=== PATIENT | female | born 1960 | race Caucasian/White ===

== ENCOUNTER 2019-08-06 09:35 | Emergency (ER) | payer BC ==
[~2019-08-06 09:35] MED LIST: HORMONE CREAM; IBUPROFEN600 MG PO; LEVOTHYROXINE PO; PERCOCET 325 MG1 TA2 PO; SKELAXIN800 MG PO; ZOFRAN ODT8 MG PO
[2019-08-06] MEDS ORDERED: LEVOTHYROXINE0.15 MG PO (10:11)
[2019-08-06 10:12] LABS: HEMATOCRIT 42.5 % (37.0-47.0); HEMOGLOBIN 13.8 g/dL (12.5-16.0); MEAN CELL VOLUME 93 fl (78-100); MEAN CORPUSCULAR HEMOGLOBIN 30 pg (27-31); MEAN CORPUSCULAR HGB CONC 33 g/dL (33-37); MEAN PLATELET VOLUME 11.1 fl (7.4-10.4); PLATELET COUNT 204 K/mm3 (130-400); RED BLOOD COUNT 4.56 M/mm3 (4.10-5.30); RED CELL DISTRIBUTION WIDTH 13.4 % (11.5-14.5); WHITE BLOOD COUNT 4.5 K/mm3 (4.8-10.8)
[2019-08-06 10:20] LABS: POTASSIUM 3.9 mmol/L (3.5-5.1); SODIUM 141 mmol/L (136-145)
[2019-08-06 10:21] LABS: CALCIUM 9.2 mg/dL (8.3-10.5)
[2019-08-06 10:22] LABS: GLUCOSE 97 mg/dL (65-105); TOTAL PROTEIN 6.7 g/dL (6.2-8.1); URINE COLOR YELLOW
[2019-08-06 10:23] LABS: CARBON DIOXIDE 25 mmol/L (23-31); PH-URINE 6.5 (5.0 - 8.0); URINE APPEARANCE CLEAR; URINE BILIRUBIN NEGATIVE (NEGATIVE); URINE BLOOD NEGATIVE (NEGATIVE); URINE GLUCOSE NEGATIVE (NEGATIVE); URINE KETONE NEGATIVE (NEGATIVE); URINE LEUKOCYTE ESTERASE NEGATIVE (NEGATIVE); URINE MUCUS PRESENT (NOT PRESENT); URINE NITRATE NEGATIVE (NEGATIVE); URINE PROTEIN(semi-quant) NEGATIVE (NEGATIVE); URINE UROBILINOGEN NORMAL (NORMAL); URINE WBC 0-1 /hpf (0-3)
[2019-08-06 10:24] LABS: LYMPHOCYTE 25 % (20-51); MONOCYTE 9 % (3-10); NEUTROPHILS 63 % (42-75); TOTAL BILIRUBIN 0.6 mg/dL (0.2-1.2)
[2019-08-06 10:28] LABS: AST-SGOT 16 U/L (5-34)
[2019-08-06 10:29] LABS: ALT/SGPT 11 U/L (0-55)
[2019-08-06 10:37] LABS: TROPONIN-I < 0.03 ng/mL (<0.030)
[2019-08-06] MEDS ORDERED: SYNTHROID0.15 MG PO (12:28)
[2019-08-06 12:33] VITALS: BP 120/79
== END 2019-08-06 12:32 | disposition home or self-care (01) ==
LOC: ED 09:35
PROVIDERS: Nurse Practitioner Primary Care
DX: G43.B0 Ophthalmoplegic migraine, not intractable (principal); E03.9 Hypothyroidism, unspecified; Z90.710 Acquired absence of both cervix and uterus; Z90.49 Acquired absence of other specified parts of digestive tract; Z90.89 Acquired absence of other organs

== ENCOUNTER → 2021-03-27 | Outpatient (CLI) | payer BC ==
[~2021-03-27] MED LIST changes: +LEVOTHYROXINE0.15 MG PO; +SYNTHROID0.15 MG PO
[2021-03-27 18:03] LABS: EOS # 0.2 (0.04-0.40); HEMATOCRIT 44.7 % (37.0-47.0); HEMOGLOBIN 14.4 g/dL (12.5-16.0); LYMPH# 1.7 (1.50-4.00); MEAN CELL VOLUME 93 fl (78-100); MEAN CORPUSCULAR HEMOGLOBIN 30 pg (27-31); MEAN CORPUSCULAR HGB CONC 32 g/dL (33-37); MEAN PLATELET VOLUME 11.1 fl (7.4-10.4); MONO # 0.6 (0.20-0.80); NEU # 3.8 (1.40-6.50); PLATELET COUNT 225 K/mm3 (130-400); RED BLOOD COUNT 4.82 M/mm3 (4.10-5.30); WHITE BLOOD COUNT 6.3 K/mm3 (4.8-10.8)
[2021-03-27 18:07] LABS: ALBUMIN 4.2 g/dL (3.4-4.8); POTASSIUM 4.2 mmol/L (3.5-5.1)
[2021-03-27 18:09] LABS: CALCIUM 9.2 mg/dL (8.3-10.5)
[2021-03-27 18:10] LABS: TOTAL PROTEIN 7.2 g/dL (6.2-8.1)
[2021-03-27 18:12] LABS: TOTAL BILIRUBIN 0.3 mg/dL (0.2-1.2)
[2021-03-27 18:13] LABS: PROTHROMBIN TIME 12.2 SECONDS (9.0-12.0)
== END ==
LOC: LAB 17:37
PROVIDERS: Internal Medicine
DX: J45.20 Mild intermittent asthma, uncomplicated (principal); E03.4 Atrophy of thyroid (acquired); R73.03 Prediabetes; R04.0 Epistaxis

== ENCOUNTER → 2021-06-02 | Outpatient (CLI) | payer BC ==
[2021-06-02 12:20] LABS: POTASSIUM 4.2 mmol/L (3.5-5.1)
[2021-06-02 12:21] LABS: CALCIUM 9.1 mg/dL (8.3-10.5)
[2021-06-02 12:29] LABS: MAGNESIUM 1.73 mg/dL (1.60-2.60)
== END ==
LOC: LAB 11:48
PROVIDERS: Internal Medicine
DX: J45.20 Mild intermittent asthma, uncomplicated (principal); E03.4 Atrophy of thyroid (acquired)

== ENCOUNTER → 2021-06-13 | Outpatient (CLI) | payer BC | LOC: LAB 11:50 | DX: M19.042 Primary osteoarthritis, left hand (principal); M19.041 Primary osteoarthritis, right hand; M77.31 Calcaneal spur, right foot; M19.071 Primary osteoarthritis, right ankle and foot; M19.072 Primary osteoarthritis, left ankle and foot; M72.2 Plantar fascial fibromatosis ==

== ENCOUNTER → 2021-08-03 | Outpatient (CLI) | payer BC | LOC: LAB 17:29 | DX: E03.4 Atrophy of thyroid (acquired) (principal) ==

== ENCOUNTER → 2023-08-01 | Outpatient (CLI) | payer MEDICARE, BC | LOC: RAD 12:15 | DX: N60.12 Diffuse cystic mastopathy of left breast (principal); N60.11 Diffuse cystic mastopathy of right breast; M85.80 Other specified disorders of bone density and structure, unspecified site ==

== ENCOUNTER → 2023-10-24 | Outpatient (CLI) | payer MEDICARE, BC | LOC: RAD 15:28 | DX: M19.042 Primary osteoarthritis, left hand (principal); M19.041 Primary osteoarthritis, right hand; M25.551 Pain in right hip ==

== ENCOUNTER → 2024-10-12 | Outpatient (CLI) | payer MEDICARE, BC ==
[~2024-10-12] MED LIST changes: +PLAQUENIL 200M200 MG PO; +VITAMIN D21250 MCG PO
== END ==
LOC: LAB 09:37
DX: Z12.11 Encounter for screening for malignant neoplasm of colon (principal)